=== PATIENT | female | born 1965 | race Caucasian/White ===

== ENCOUNTER 2021-11-05 02:11 | Emergency (ER) | payer BC, MEDICAID, SELFPAY ==
[2021-11-05 02:16] VITALS: BP 144/82; BP 180/85; PULSE 80; PULSE 81; RESP 17; TEMP 37.1; O2SAT 94; O2SAT 95; BMI 31.7
[2021-11-05] MEDS: LORazepam 1 MG TABLET PO (02:34)
[2021-11-05] MEDS: Lidocaine HCl Viscous 2 % 15 ML SOLUTION MUCOUS MEM (02:34)
--- NOTE | 2021-11-05 02:34 | ED.EAR ---
HPI - Ear Problem General Chief complaint: Skin/Abscess/Foreign Body Stated complaint: RT EAR PAIN Time Seen by Provider: 11/05/21 02:26 Source: patient Mode of arrival: EMS Limitations: no limitations History of Present Illness MD Complaint: ear pain Location: right ear Duration: constant Severity: moderate Relieving factors: nothing Exacerbating factors: nothing Context: other (thinks a bug flew in her ear put hydrogen peroxide in it then tried to remove it with a qtip now there is bleeding in her ear) Discharge from ear: yes - bloody Associated symptoms ear: decreased hearing Treatment prior to arrival: other (qtip hydrogen peroxide) Related Data Previous Rx's Medication Instructions Recorded ofloxacin 0.3 % ear drops 10 drp otic (ears) DAILY 7 days #5 11/05/21 mL Allergies Allergy/AdvReac Type Severity Reaction Status Date / Time amlodipine [From Norvasc] Allergy Unknown Verified 11/05/21 02:58 diphenhydramine Allergy Unknown Verified 11/05/21 02:58 [From Benadryl] latex Allergy Unknown Verified 11/05/21 02:58 lisinopril Allergy Unknown Verified 11/05/21 02:58 Review of Systems Review of Systems: Constitutional : No Fever, No Chills ENT/Mouth : pos ear pain, pos blood from ear Cardiovascular : No Chest Pain, No SOB Respiratory : No Cough, No Sputum Gastrointestinal : No Nausea, No Vomiting Musculoskeletal : No joint pain, No Myalgias, No Joint Swelling Skin : No Skin Lesions, No rash PMFSH Past Medical History Medical History (Updated 11/05/21 @ 03:57 by Radha Hirsch DO) HTN (hypertension) Social History Social History (Updated 11/05/21 @ 03:05 by Radha Hirsch DO) Patient Tobacco Use Status: Tobacco use Unknown Physical Exam Vital Signs: Vital Signs: Last Vital Signs Temp 98.7 F 11/05/21 02:16 Pulse 80 11/05/21 02:16 Resp 17 11/05/21 02:16 BP 180/85 H 11/05/21 02:16 Pulse Ox 95 11/05/21 02:16 O2 Del Method 11/05/21 02:16 BMI result Body Mass Index 31.7 Appearance: Alert. Oriented X3. No acute distress. Eyes: Pupils equal, round and reactive to light. ENT: Pharynx normal. R TM flat shell noted over TM vs wax, blood noted ext ear canal patient very upset and moving, no obvious perforation seen Neck: Normal inspection. Neck supple. CVS: Normal heart rate and rhythm. Pulses normal. Respiratory: No respiratory distress. Abdomen: Soft and nontender. Skin: Skin warm and dry. Normal skin color. Normal skin turgor. Extremities: No lower extremity edema. Neuro: Oriented X 3. No motor deficit. No sensory deficit. Course Course Course Narrative: attempted to try to remove with alligator forceps after irrigation patient declines and wants ear drops and to follow up with ENT - she was given ativan, daughter at bedside MDM - Ear MDM Narrative Medical decision making narrative: 56 yo female with likely bug in ear attempted extraction with forceps but she is moving a lot and very anxious - at this time will irrigate ear - I do not appreciate perforation at this time. Discharge Plan Discharge Clinical Impression: Ear foreign body Qualifiers: Encounter type: initial encounter Laterality: right Qualified Code(s): T16.1XXA - Foreign body in right ear, initial encounter Patient Disposition: Home, Self-Care Instructions: Ear Foreign Body (ED) Additional Instructions: return to ED for any worsening symptoms or concerns no water in ear x 1 week please see your doctor and ENT as soon as possible next week Prescriptions: New ofloxacin 0.3 % drops 10 drp otic (ears) DAILY 7 Days Qty: 5 0RF
== END 2021-11-05 04:26 | disposition home or self-care (01) ==
PROVIDERS: Emergency Provider Emergency Medicine
DX: T16.1XXA Foreign body in right ear, initial encounter (principal); X58.XXXA Exposure to other specified factors, initial encounter; Y93.9 Activity, unspecified; Y92.017 Garden or yard in single-family (private) house as the place of occurrence of the external cause; Y99.9 Unspecified external cause status
CPT/HCPCS: 69200; 99282; 99283; 99284